=== PATIENT | female | born 1955 | race Caucasian/White ===

== ENCOUNTER → 2016-09-30 | Outpatient (CLI) | payer OTHER ==
--- NOTE | 2016-10-02 08:46 | MM ---
Reason for exam: screening (asymptomatic). Last mammogram was performed 1 year ago. History: Patient is postmenopausal and has history of other cancer at age 53. Took hormonal contraceptives for 5 years beginning at age 19. Physical Findings: A clinical breast exam by your physician is recommended on an annual basis and results should be correlated with mammographic findings. MG 3D Screening Mammo W/Cad Bilateral CC and MLO view(s) were taken. Prior study comparison: September 25, 2015, bilateral MG screening mammo w CAD. September 14, 2014, bilateral MG screening mammo w CAD. September 13, 2013, bilateral digital screening mammo w/CAD. The breast tissue is heterogeneously dense. This may lower the sensitivity of mammography. No significant changes when compared with prior studies. ASSESSMENT: Negative, BI-RAD 1 RECOMMENDATION: Routine screening mammogram of both breasts in 1 year.
== END | disposition home or self-care (01) ==
LOC: RADMAMWWP 16:45
PROVIDERS: ATTEND Obstetrics & Gynecology
DX: Z12.31 Encounter for screening mammogram for malignant neoplasm of breast (principal)
CPT/HCPCS: 77063; G0202

== ENCOUNTER → 2016-10-31 | Outpatient (CLI) | payer OTHER ==
[2016-10-31 11:01] LABS: Basophils # (A) 0.1 k/uL (0-0.2); Basophils % (A) 2 %; CH 30.4; Eosinophils # (A) 0.2 k/uL (0-0.7); Eosinophils % (A) 4 %; HCT 40.5 % (34.0-46.0); HDW 2.39; HGB 13.5 gm/dL (11.4-16.0); Luc # (Auto) 0.21; Luc % (Auto) 4; Lymphocytes # (A) 2.1 k/uL (1.0-4.8); Lymphocytes % (A) 39 %; MCH 29.9 pg (25.0-35.0); MCHC 33.3 g/dL (31.0-37.0); MCV 89.9 fL (80.0-100.0); Mean Platelet Volume 8.5; Monocytes # (A) 0.3 k/uL (0-1.0); Monocytes % (A) 5 %; Neutrophils # (A) 2.4 k/uL (1.3-7.7); Neutrophils % (A) 46 %; RDW 12.1 % (11.5-15.5); WBC 5.4 k/uL (3.8-10.6); WBC (Perox) 5.17
[2016-10-31 11:18] LABS: ALT 36 U/L (9-52); AST 30 U/L (14-36); Alkaline Phosphatase 60 U/L (38-126); Anion Gap 10 mmol/L; Blood Urea Nitrogen 20 mg/dL (7-17); Calcium 9.8 mg/dL (8.4-10.2); Carbon Dioxide 28 mmol/L (22-30); Chloride 103 mmol/L (98-107); Cholesterol 181 mg/dL (<200); Glucose 92 mg/dL (74-99); HDL Cholesterol 59 mg/dL (40-60); Non-African American GFR(MDRD) >60 (>60 ml/min/1.73 sqM); Potassium 4.7 mmol/L (3.5-5.1); Sodium 141 mmol/L (137-145); Total Bilirubin 0.9 mg/dL (0.2-1.3); Total Protein 7.2 g/dL (6.3-8.2); Triglycerides 78 mg/dL (<150); Uric Acid 5.8 mg/dL (3.7-7.4)
== END ==
LOC: LABWHC1 09:26
PROVIDERS: ATTEND Internal Medicine
DX: E78.5 Hyperlipidemia, unspecified (principal); M10.9 Gout, unspecified
CPT/HCPCS: 36415; 80053; 80061; 84439; 84443; 84550; 85025

== ENCOUNTER → 2016-11-07 | Outpatient (CLI) | payer OTHER ==
[2016-11-07 14:09] LABS: Appearance,Urine Clear (Clear); Bacteria,Urine Moderate /hpf; Bilirubin,Urine Negative (Negative); Glucose,Urine (UA) Negative (Negative); Ketones,Urine Negative (Negative); Leukocyte Esterase,Urine Large (Negative); Mucus,Urine Rare /hpf; Nitrite,Urine Negative (Negative); PH, Urine 6.5 (5.0-8.0); Particle Count 922; Protein,Urine Negative (Negative); RBC,Urine 4 /hpf (0-5); Specific Gravity,Urine 1.006 (1.001-1.035); UA Billing (MACRO vs. MICRO) MICRO; Urobilinogen,Urine <2.0 mg/dL (<2.0); WBC,Urine 121 /hpf (0-5)
== END | disposition home or self-care (01) ==
LOC: LABWHC1 13:42
PROVIDERS: ATTEND Internal Medicine
DX: N39.0 Urinary tract infection, site not specified (principal)
CPT/HCPCS: 81001; 87077; 87086; 87186

== ENCOUNTER → 2017-01-08 | Outpatient (CLI) | payer OTHER ==
--- NOTE | 2017-01-09 07:47 | BD ---
EXAMINATION TYPE: MG DEXA axial skeleton. DATE OF EXAM: 01/08/2017 COMPARISON: DEXA bone scan October 10, 2014. CLINICAL HISTORY: Osteopenia per order. Height: 62 Weight: 155.1 FRAX RISK QUESTIONS: Alcohol (3 or more units per day): no Family History (Parent hip fracture): no Glucocorticoids (More than 3mos): no (Ex: prednisone, prednisolone, methylprednisolone, dexamethasone, and hydrocortisone). History of Fracture in Adulthood: no Secondary Osteoporosis: 1. Type 1 Diabetes: no 2. Hyperthyroidism: no 3. Menopause before 45: no 4. Malnutrition: no 5. Chronic liver disease: no Rheumatoid Arthritis: no Current Tobacco Use: no RISK FACTORS HISTORY OF: Hip Fracture (Right/Left): no Spine Fracture: no History of Wrist Fracture: no Surgery to Spine/Hip(right/left)/Wrist (right/left): no Family History of Osteoporosis: yes- mother Active: yes Diet low in dairy products/other sources of calcium: no Postmenopausal woman: hysterectomy age 46 Lost more than 2 inches in height since high school: no Frequent falls: no Adrenal Insufficiency: no MEDICATIONS: none Additional History: EXAM MEASUREMENTS: Bone mineral densitometry was performed using the [employer] System. Bone mineral density as measured about the Lumbar spine is: ----- L1-L4(G/cm2): 1.170 T Score Values are as follows: ----- L2: -0.4 ----- L3: -0.3 ----- L4: 0.8 ----- L1-L4: -0.1 Bone mineral density has: decreased-0.5 % since study of: 10.20.2014 Bone mineral density about the R hip (g/cm2): 0.929 Bone mineral density about the L hip (g/cm2): 0.919 T Score values are as follows: -----R Neck: -0.8 -----L Neck: -0.9 -----R Total: -0.4 -----L Total: -0.6 Bone mineral density has: increased 1.0 % since study of: 10.20.2014 IMPRESSION: Normal (Values between +1 and -1 indicate normal bone mass). Consider repeating this study in 5 year s or sooner if there is some new clinical indication. NOTE: T-SCORE=SD OF THE YOUNG ADULT MEAN.
== END | disposition home or self-care (01) ==
LOC: RADBDWWP 15:49
PROVIDERS: ATTEND Obstetrics & Gynecology
DX: Z13.820 Encounter for screening for osteoporosis (principal)
CPT/HCPCS: 77080

== ENCOUNTER → 2017-10-21 | Outpatient (CLI) | payer OTHER ==
--- NOTE | 2017-10-22 10:19 | MM ---
Reason for exam: screening (asymptomatic). Last mammogram was performed 1 year and 1 month ago. History: Patient is postmenopausal and has history of other cancer at age 53. Took hormonal contraceptives for 5 years beginning at age 19. Physical Findings: A clinical breast exam by your physician is recommended on an annual basis and results should be correlated with mammographic findings. MG 3D Screening Mammo W/Cad Bilateral CC and MLO view(s) were taken. Prior study comparison: September 30, 2016, bilateral MG 3d screening mammo w/cad. September 25, 2015, bilateral MG screening mammo w CAD. The breast tissue is heterogeneously dense. This may lower the sensitivity of mammography. Finding: There are typically benign round calcifications in both breasts. There is no discrete abnormality. ASSESSMENT: Benign, BI-RAD 2 RECOMMENDATION: Routine screening mammogram of both breasts in 1 year.
== END | disposition home or self-care (01) ==
LOC: RADMAMWWP 09:31
PROVIDERS: ATTEND Obstetrics & Gynecology
DX: Z12.31 Encounter for screening mammogram for malignant neoplasm of breast (principal)
CPT/HCPCS: 77063; 77067

== ENCOUNTER → 2018-12-04 | Outpatient (CLI) | payer OTHER ==
--- NOTE | 2018-12-07 08:17 | MM ---
Reason for exam: screening (asymptomatic). Last mammogram was performed 1 year and 1 month ago. History: Patient is postmenopausal and has history of other cancer at age 53. Took hormonal contraceptives for 5 years beginning at age 19. Physical Findings: A clinical breast exam by your physician is recommended on an annual basis and results should be correlated with mammographic findings. MG 3D Screening Mammo W/Cad Bilateral CC and MLO view(s) were taken. Prior study comparison: October 21, 2017, bilateral MG 3d screening mammo w/cad. September 30, 2016, bilateral MG 3d screening mammo w/cad. The breast tissue is heterogeneously dense. This may lower the sensitivity of mammography. Finding: There is a 7 mm circumscribed oval mass located 2-3 cm from the nipple in the anterior position of the left breast on CC 29/ and MLO 32/69. New finding since October 21, 2017. ASSESSMENT: Incomplete: need additional imaging evaluation, BI-RAD 0 RECOMMENDATION: Ultrasound of the left breast. [facility] will attempt to contact patient to return for ultrasound.
== END | disposition home or self-care (01) ==
LOC: RADMAMWWP 10:00
PROVIDERS: ATTEND Obstetrics & Gynecology
DX: Z12.31 Encounter for screening mammogram for malignant neoplasm of breast (principal)
CPT/HCPCS: 77063; 77067

== ENCOUNTER → 2018-12-15 | Outpatient (CLI) | payer OTHER ==
--- NOTE | 2018-12-15 13:54 | USB ---
Reason for exam: additional evaluation requested from abnormal screening. History: Patient is postmenopausal and has history of other cancer at age 53. Took hormonal contraceptives for 5 years beginning at age 19. Physical Findings: Nurse did not find any significant physical abnormalities on exam. US Breast Workup Limited LT Left complete breast ultrasound includes all four quadrants, the retroareolar region and axilla. Finding demonstrates 0.9 x 0.7 x 0.5cm oval cystic lesion at the axilla, multiple morphologically normal appearing lymph nodes. Mammographic findings appears only very minimally enlarged from 2017 and 2018 and questionably present on exams back to 2014. These results were verbally communicated with the patient and result sheet given to the patient on 12/15/18. ASSESSMENT: Probably benign, BI-RAD 3 RECOMMENDATION: Follow-up diagnostic mammogram of the left breast in 6 months.
== END | disposition home or self-care (01) ==
LOC: RADUSWWP 12:58
PROVIDERS: ATTEND Obstetrics & Gynecology
DX: R92.8 Other abnormal and inconclusive findings on diagnostic imaging of breast (principal)

== ENCOUNTER → 2019-07-06 | Outpatient (CLI) | payer OTHER ==
--- NOTE | 2019-07-06 09:28 | MM ---
Reason for exam: additional evaluation requested from prior study. Last mammogram was performed 7 months ago. History: Patient is postmenopausal and has history of other cancer at age 53. Took hormonal contraceptives for 5 years beginning at age 19. Physical Findings: Nurse did not find any significant physical abnormalities on exam. MG 3D Diag Mammo W/Cad LT CC and MLO view(s) were taken of the left breast. Prior study comparison: December 04, 2018, bilateral MG 3d screening mammo w/cad. October 21, 2017, bilateral MG 3d screening mammo w/cad. The breast tissue is heterogeneously dense. This may lower the sensitivity of mammography. There is chronic nodularity in the left breast. Asymmetric breast tissue, stable. There is no discrete abnormality. These results were verbally communicated with the patient and result sheet given to the patient on 07/06/19. ASSESSMENT: Benign, BI-RAD 2 RECOMMENDATION: Return to routine screening mammogram schedule for both breasts. Back on schedule.
== END | disposition home or self-care (01) ==
LOC: RADMAMWWP 08:27
PROVIDERS: ATTEND Obstetrics & Gynecology
DX: R92.8 Other abnormal and inconclusive findings on diagnostic imaging of breast (principal)
CPT/HCPCS: 77061; 77065

== ENCOUNTER → 2019-09-28 | Outpatient (CLI) | payer MEDICARE ==
[2019-09-28 10:36] LABS: Basophils # (A) 0.1 k/uL (0-0.2); Basophils % (A) 1 %; Eosinophils # (A) 0.2 k/uL (0-0.7); Eosinophils % (A) 4 %; HCT 41.9 % (34.0-46.0); HGB 13.6 gm/dL (11.4-16.0); Lymphocytes # (A) 2.4 k/uL (1.0-4.8); Lymphocytes % (A) 36 %; MCH 29.6 pg (25.0-35.0); MCHC 32.5 g/dL (31.0-37.0); MCV 90.9 fL (80.0-100.0); Mean Platelet Volume 8.7; Monocytes # (A) 0.4 k/uL (0-1.0); Monocytes % (A) 5 %; Neutrophils # (A) 3.4 k/uL (1.3-7.7); Neutrophils % (A) 52 %; Platelet Count 278 k/uL (150-450); RBC 4.61 m/uL (3.80-5.40); RDW 11.8 % (11.5-15.5); WBC 6.6 k/uL (3.8-10.6)
[2019-09-28 17:21] LABS: African American GFR (CKD) 77.8 (60.0-200.0); Albumin 4.5 g/dL (3.80-4.90); Albumin/Globulin Ratio 2.14 (1.60-3.17); Anion Gap 10.1 mmol/L (4.00-12.00); BUN/Creat Ratio 24.44 Ratio (12.00-20.00); Calcium 9.9 mg/dL (8.7-10.3); Carbon Dioxide 29.9 mmol/L (21.6-31.8); Chol/HDL Ratio 2.5; Globulin 2.1 g/dL (1.6-3.3); LDL Cholesterol,Calculated 96.6 mg/dL (0.0-131.0); Non-African American GFR(CKD) 67.1 (60.0-200.0); Potassium 4.6 mmol/L (3.5-5.5); Total Bilirubin 0.7 mg/dL (0.2-1.2); Total Protein 6.6 g/dL (6.2-8.2); VLDL Calculation 17.4 mg/dL (5.00-40.00)
[2019-09-28 17:28] LABS: T4, Free (Free Thyroxine) 1.4 ng/dL (0.80-1.80)
== END | disposition home or self-care (01) ==
LOC: LABWHC1 08:07
PROVIDERS: ATTEND Internal Medicine
DX: E78.5 Hyperlipidemia, unspecified (principal)
CPT/HCPCS: 36415; 80053; 80061; 84439; 84443; 85025

== ENCOUNTER → 2020-02-18 | Outpatient (CLI) | payer MEDICARE ==
--- NOTE | 2020-02-21 11:57 | MM ---
Reason for exam: screening (asymptomatic). Last mammogram was performed 7 months ago. History: Patient is postmenopausal and has history of other cancer at age 53. Took hormonal contraceptives for 5 years beginning at age 19. Physical Findings: A clinical breast exam by your physician is recommended on an annual basis and results should be correlated with mammographic findings. MG 3D Screening Mammo W/Cad Bilateral CC and MLO view(s) were taken. Prior study comparison: July 06, 2019, left breast MG 3d diag mammo w/cad LT. December 04, 2018, bilateral MG 3d screening mammo w/cad. The breast tissue is heterogeneously dense. This may lower the sensitivity of mammography. There is chronic nodularity in the right breast laterally. No significant changes when compared with prior studies. ASSESSMENT: Benign, BI-RAD 2 RECOMMENDATION: Routine screening mammogram of both breasts in 1 year.
== END | disposition home or self-care (01) ==
LOC: RADMAMWWP 14:54
PROVIDERS: ATTEND Obstetrics & Gynecology
DX: Z12.31 Encounter for screening mammogram for malignant neoplasm of breast (principal)
CPT/HCPCS: 77063; 77067

== ENCOUNTER → 2020-05-31 | Outpatient (CLI) | payer MEDICARE ==
[2020-05-31 11:31] LABS: HGB 13.5 gm/dL (11.4-16.0); MCH 30.8 pg (25.0-35.0); MCHC 32.8 g/dL (31.0-37.0); MCV 93.8 fL (80.0-100.0); Mean Platelet Volume 7.8; Platelet Count 260 k/uL (150-450); RBC 4.37 m/uL (3.80-5.40); RDW 12.1 % (11.5-15.5); WBC 6.3 k/uL (3.8-10.6)
[2020-05-31 11:38] LABS: Partial Thromboplastin Time 23.8 sec (22.0-30.0); Prothrombin Time 10.1 sec (9.0-12.0)
[2020-05-31 11:39] LABS: Amorphous Sediment,Urine Rare /hpf; Appearance,Urine Clear (Clear); Bacteria,Urine Few /hpf; Bilirubin,Urine Negative (Negative); Blood,Urine Negative (Negative); Color,Urine Yellow; Glucose,Urine (UA) Negative (Negative); Ketones,Urine Negative (Negative); Leukocyte Esterase,Urine Small (Negative); Mucus,Urine Rare /hpf; Nitrite,Urine Positive (Negative); Protein,Urine Negative (Negative); RBC,Urine 1 /hpf (0-5); Specific Gravity,Urine 1.016 (1.001-1.035); Squamous Epithelial Cell,Urine <1 /hpf (0-4); Urobilinogen,Urine <2.0 mg/dL (<2.0); WBC,Urine 3 /hpf (0-5)
[2020-05-31 16:28] LABS: African American GFR (CKD) 89.7 (60.0-200.0); Albumin 4.5 g/dL (3.80-4.90); Albumin/Globulin Ratio 2.14 (1.60-3.17); Anion Gap 10.8 mmol/L (4.00-12.00); BUN/Creat Ratio 26.25 Ratio (12.00-20.00); Carbon Dioxide 25.2 mmol/L (21.6-31.8); Globulin 2.1 g/dL (1.6-3.3); Non-African American GFR(CKD) 77.4 (60.0-200.0); Potassium 5.1 mmol/L (3.5-5.5); Total Bilirubin 0.6 mg/dL (0.3-1.2); Total Protein 6.6 g/dL (6.2-8.2)
== END | disposition home or self-care (01) ==
LOC: LABWHC1 10:00
PROVIDERS: ATTEND Orthopaedic Surgery Sports Medicine
DX: Z01.818 Encounter for other preprocedural examination (principal); Z01.812 Encounter for preprocedural laboratory examination
CPT/HCPCS: 36415; 80053; 81001; 85027; 85610; 85730; 87070

== ENCOUNTER 2020-06-15 07:53 | Day surgery (SDC) | payer MEDICARE ==
[2020-06-13 12:37] VITALS: BMI 27.4
[~2020-06-15 07:53] MED LIST: ACETAMINOPHEN TAB 500 MG TAB PO ONE; DEXAMETHASONE SOD PHOSPHATE 4 MG/ML 1 ML VIAL IV ONE; GABAPENTIN 300 MG CAP PO ONE; HYDROmorphone 0.5 MG/0.5 ML SYRINGE IVP PRN; LACTATED RINGERS 1,000 ML IV SCH; MELOXICAM 7.5 MG TAB PO ONE; MIDAZOLAM 2 MG/2 ML VIAL IV PRN; ONDANSETRON 4 MG/2 ML VIAL IVP ONE; TRANEXAMIC ACID 1,000 MG in SODIUM CHLORIDE 0.9% 100 ML IVPB ONE
[2020-06-15] MEDS ORDERED: LIDOCAINE 1% (10MG/ML) FOR IV START INTRADERMA ONE (08:30)
[2020-06-15] MEDS ORDERED: fentaNYL (PF) 50 MCG/ML 2 ML AMP IV ONE (08:56)
[2020-06-15] MEDS ORDERED: TRANEXAMIC ACID 1,000 MG/10 ML VIAL ONE (09:22)
[2020-06-15] MEDS ORDERED: PHENYLEPHRINE-0.9% NACL SYG 1 MG/10 ML SYRINGE ONE (09:22)
[2020-06-15] MEDS ORDERED: SODIUM CHLORIDE 0.9% 100 ML BAG ONE (09:22)
[2020-06-15] MEDS ORDERED: ePHEDrine SULFATE/0.9% NACL/PF 50 MG/5 ML SYRINGE IV ONE (09:22)
[2020-06-15] MEDS ORDERED: PROPOFOL 10 MG/ML 20 ML VIAL IV ONE (09:22)
[2020-06-15] MEDS ORDERED: fentaNYL (PF) 50 MCG/ML 2 ML AMP ONE (09:22)
[2020-06-15] MEDS ORDERED: LIDOCAINE 1% INJ 10MG/ML (20 ML MDV) ONE (09:22)
[2020-06-15] MEDS ORDERED: MIDAZOLAM 2 MG/2 ML VIAL ONE (09:22)
[2020-06-15] MEDS ORDERED: HYDROcodone/APAP 10-325MG 1 EACH TAB PO PRN (09:23)
[2020-06-15] MEDS ORDERED: NA PHOS,M-B/NA PHOS,DI-BA 133 ML ENEMA RECTAL PRN (09:23)
[2020-06-15] MEDS ORDERED: HYDROmorphone 0.5 MG/0.5 ML SYRINGE IVP PRN ×3 (09:23)
[2020-06-15] MEDS ORDERED: ONDANSETRON 4 MG/2 ML VIAL IVP PRN (09:23)
[2020-06-15] MEDS ORDERED: NALOXONE 0.4 MG/ML 1 ML VIAL IV PRN (09:23)
[2020-06-15] MEDS ORDERED: MAGNESIUM HYDROXIDE 2,400 MG/10 ML CUP PO PRN (09:23)
[2020-06-15] MEDS ORDERED: diazePAM 5 MG TAB PO PRN (09:23)
[2020-06-15] MEDS ORDERED: HYDROcodone/APAP 5-325MG 1 EACH TAB PO PRN (09:23)
[2020-06-15] MEDS ORDERED: hydrOXYzine pamoate 25 MG CAP PO PRN (09:23)
[2020-06-15] MEDS ORDERED: TEMAZEPAM 15 MG CAP PO PRN (09:23)
[2020-06-15] MEDS ORDERED: traMADol 50 MG TAB PO PRN (09:23)
[2020-06-15] MEDS ORDERED: bisacodyL 10 MG SUPP RECTAL PRN (09:23)
[2020-06-15] MEDS ORDERED: ceFAZolin 3,000 MG in SODIUM CHLORIDE 0.9% IRRIGATIO 3,000 ML IRRIGATION ONE (09:26)
[2020-06-15] MEDS: ROPIVACAINE 246.25 MG, EPINEPHrine 0.5 MG, KETOROLAC 30 MG, cloNIDine HCL/PF 80 MCG, WA... MISCELLANE ONE ×10 (09:54→10:30)
[2020-06-15] MEDS ORDERED: ROPIVACAINE 0.2%-NS ON-Q PUMP 1,090 MG, EMPTY PAIN BALL 1 EACH MISCELLANE PRN (09:55)
--- NOTE | 2020-06-15 09:55 | P.ANPRN ---
Procedure Note - Anesthesia - Nerve Block Performed Left Adductor Canal Infusion Time Out Performed: Yes Date of Procedure: 06/15/20 Procedure Start Time: 08:55 Procedure Stop Time: 09:05 Location of Patient: PreOp Indication: Requested by Surgeon Specifically requested for management of pain by DrAndreia: Noble Braswell Sedation Type: Sedate with meaningful contact maintained Preparation: Sterile Prep, Sterile Dressing Position: Supine Catheter: Indwelling Needle Types: Pajunk Needle Gauge: 20 Ultrasound used to visualize needle placement: Yes Ultrasound used to observe medication spread: Yes Injectate: 0.5% Ropivacaine (see comment for volume) (20 ml) Blood Aspirated: No Pain Paresthesia on Injection Noted: No Resistance on Injection: Normal Image Stored and Saved: Yes Events: Uneventful and Well Tolerated
--- NOTE | 2020-06-15 12:07 | XR ---
Left knee Limited HISTORY: Postop frontal and lateral views of the left knee submitted Patient is status post left knee arthroplasty. There is anatomic alignment. Lucency present in the so ft tissues. Screw tract noted to the proximal tibial metaphysis medially. IMPRESSION: Orthopedic follow-up.
[2020-06-15] MEDS: LACTATED RINGERS 1,000 ML IV SCH ×2 (12:42→16:41)
--- NOTE | 2020-06-15 18:31 | OP ---
OPERATIVE REPORT DATE OF PROCEDURE: 06/15/2020. SURGEON: Dr. Noble Braswell. PROCESSING ENGINEER: Arik BAUER. PREOPERATIVE DIAGNOSIS: Left knee osteoarthrosis. POSTOP DIAGNOSIS: Left knee osteoarthrosis. OPERATION PERFORMED: Left total knee arthroplasty. ANESTHESIA: Spinal with sedation. ESTIMATED BLOOD LOSS: 100 mL. TOURNIQUET TIME: 46 minutes at 250 mmHg. COMPLICATIONS: None apparent. DRAINS: None. DISPOSITION: Postanesthesia care unit. INDICATIONS: Delaney is a very pleasant 64-year-old female with longstanding history of left knee pain. History and physical examination are consistent with advanced left knee osteoarthrosis. She has been through significant nonoperative management up to this point. Further treatments were discussed. She decided to go for the left total knee arthroplasty. Risks of procedure were discussed with her in detail. These risks include, but are not limited to risk of infection, nerve damage, bleeding, pain, and a small risk of deep vein thrombosis which could lead to fatal pulmonary embolism. There is also risk of loosening of the implants, which could require revision operation. The patient understands these risks. All of her questions were answered to her satisfaction. Appropriate informed consent was obtained. DESCRIPTION OF PROCEDURE: Patient identified in preop holding area. Surgical site was marked by both the patient and myself. She was given 2 g of Ancef IV for prophylactic purposes. She was then transferred to the operative suite. She was placed supine on the operative table. Spinal anesthetic was then administered and dosed per the anesthesia without apparent complication. Examination under anesthesia was then performed. The patient was 2-3 degrees shy of full extension. She had 100 degrees of flexion. The medial collateral ligament, lateral collateral ligament and posterior cruciate ligaments were stable. Tourniquet was then placed high on the left upper thigh well-padded in preparation for surgery. The patient's left lower extremity than prepped and draped in the usual sterile fashion. Standard surgical pause undertaken to ensure that we were operating on the correct site and that appropriate preoperative antibiotics were given. All staff were in agreement. We proceeded. The outlines of the patella were marked with a surgical pen. A planned 12 cm vertical incision over the patella was marked surgical pen. Leg was then exsanguinated with Esmarch dressing. The knee was then flexed and the tourniquet was inflated to 250 mmHg. Total tourniquet time for the procedure was 46 minutes Incision was then made with a 10 blade scalpel. The dissection was carried down sharply overlying fascia. Great care was taken to minimize the skin flaps. The knee was then exposed using a standard medial parapatellar approach. A small cuff of quadriceps tendon was then left for suturing. She was in quite a bit of varus preoperatively. A standard medial release was then made. Superficial medial collateral ligament dissected off the bone around the posterior aspect of the proximal tibia. The medial meniscus was then excised as well. The lateral meniscus was also released anteriorly. The leg was then externally rotated. The patella was everted. The knee was flexed. The retractors then placed to protect the collateral ligaments. I then proceeded to remove the infrapatellar fat pad. This was excised sharply tangentially with fibers of the patellar tendon. I then proceeded to remove peripheral osteophytes. This is done with a rongeur. I then proceeded with the distal femoral resection. She did have near full extension. A planned 9 mm resection was then done. The femoral canal was then entered in the midline of the femur approximately 10 mm anterior to the origin of posterior cruciate ligament. The justice was then advanced down the center of the femur and placed intramedullary. Based on the preop radiographs, anatomic and mechanical axis of the femur was approximately 4-5 degrees. The valgus angle of the femoral cutting guide was then set at 4 degrees for the left knee. The distal femoral cutting guide was then advanced over the intramedullary justice. This was seated firmly against the femur fit. I then as mentioned planned to take 9 mm off the distal femur. The cutting blocks then secured onto the femur with pins. The guide jig was then removed. The distal femoral cut was made through the slot of the block. The pins then removed this femoral cutting block was removed. The accuracy of this femoral cuts was checked with 2 flat bars. I then proceeded with femoral sizing. Posterior referencing sizing guide was held firmly against the resected surface of the femur. The posterior condyles were resting on the posterior plane of the guide. The sizing stylus then placed onto the anterior femur. The size was measured as a size 5. I then assessed for femoral rotation. The plan was for 3 degrees external rotation. 3 degrees external rotation was placed onto the jig. These holes were then marked. I then confirmed the rotation by 3 separate methods. This was done using epicondylar axis as well as Whitesides line and posterior referencing. Deemed that the external rotation was proper. I then went forward, placed the femoral cutting block. This was placed over the previously placed pin holes with the Fred wing was then placed on the anterior slots to ensure that we would not notch the anterior femur. The anterior femoral cut. I then proceed with the anterior femoral cut. This was flush with the anterior cortex of the femur. The posterior cuts were then made followed by the anterior chamfer cut, then the posterior chamfer cut. The cutting block was then removed. Throughout the resection, the collateral ligaments were protected with retractors. I then placed a trial size 5 femur. It fit very nice medial-lateral and fit flush with the distal end of the femur. The drill holes were then made. I then proceeded with the tibial cut. I planned for cruciate-retaining knee. Guide was placed and set for varus valgus and for slope. Height set proper for approximately 2 mm resection from the medial tibial plateau which was the lower side. the alignment and the amount of resection. The cutting block was then pinned to the proximal tibia. The alignment justice was removed. The proximal tibia was resected with the reciprocating saw. Again this was done with retractors protecting the collateral ligaments as well as the posterior cruciate ligament. I then proceeded to evaluate the flexion extension gaps. A 10 mm block was then placed. The flexion-extension gaps were equal. I then proceeded with resection of posterior osteophytes. She had very minimal posterior osteophytes. This is done using a curved osteotome. This resected the posterior osteophytes. Posterior capsule stripping was done off the posterior aspect of the femur. The osteophytes were then removed. I then proceed to resection of patella. The thickness of the patella was measured using the caliper. The thickness was 22 mm. The thickness of the anticipated patellar dome was taken into account. Retraction was then performed and confirmed to be equal in 4 quadrants using a caliper. Approximately 14 mm of bone remained after resection. A 29 x 8 standard patellar trial was then placed. The holes were drilled. Trial was then placed. I then proceeded with sizing tibial plate. A size C tibial plate fit very nicely. I then proceeded with the trial femur, the tibial tray and patellar button. A 10 mm trial tibial insert was also placed. The components fit very nicely. She had full extension and flexion. The extension and flexion gaps were equal and stable to varus and valgus stress. The patella tracked appropriately. The tibial tray rotation was marked with a Bovie. This was externally rotated properly. I then proceed with tibial preparation. First drilled the femoral holes, removed femoral component. The tibial tray was then set for proper external rotation as well as mediolateral placement on the tibia. It was then pinned into place. I then proceeded with punching the keel. I then decided to proceed with cementing of all of our components. The knee was thoroughly irrigated with sterile saline solution via pulse lavage. The lateral geniculate artery was identified and cauterized. All blood was removed from the bone of the tibia femur and patella with pulse lavage. I then proceed with cementing. Two packs of antibiotic bone cement prepared on the back table by the rn neurosurgical. I then proceed with cemented tibia first. The cement was impacted in the keel as well as deeply seated into the bone. A second coat cement was then placed. The tibia was then impacted into place. Excess cement was removed with [place]'s and jokers. I then proceed with cementing of the femoral component. The femoral component was also cemented using sterile technique. Excess cement was removed with. A 10 mm trial insert was then placed and the knee was brought into full extension with a constant axial load placed until the cement had hardened. The patellar component was then cemented. This held firmly with a compressive device until the cement had dried. When cement had dried, the knee was taken out of extension. All excess cement was removed from around the prosthesis. We then trialed with a 10 mm insert. I then proceeded to trial with a 12 mm insert. The flexion-extension gaps felt much better. The knee was stable. It came into full extension. I decided to go forward with a 10 mm cross-linked cruciate-retaining tibial insert. Polyethylene was then placed onto the tibial tray and locked into place. The knee was then reduced. The knee was again further irrigated with sterile saline solution with antibiotic added. The tourniquet was then deflated. The total tourniquet time procedure was 46 minutes at 250 mmHg. Final components were Lynn Persona size 5 cruciate-retaining femoral component, size C tibial tray, a 12 mm medial congruent cruciate-retaining tibial polyethylene insert and a 29 x 8 mm patella. I then proceeded with closure. Again, the knee was thoroughly irrigated. The quadriceps tendon and medial retinaculum were reapproximated with #2 Ethibond suture. The extensor mechanism was then closed with a running Quill suture. Subcutaneous tissues were closed with 2-0 Vicryl interrupted suture. The skin was closed with a running 3-0 Quill suture. Dermabond applied to the incision. Sterile compressive dressings were applied. All sponge and needle counts were deemed correct prior to closure. The patient tolerated procedure without apparent complication. She was transferred to the recovery room in stable condition. MMODL / IJN: [id number] /
[2020-06-15] MEDS ORDERED: SENNOSIDES-DOCUSATE SODIUM 1 EACH TAB PO SCH (21:00)
[2020-06-15] MEDS: ASPIRIN 81 MG PO SCH (21:34)
[2020-06-16] MEDS: ACETAMINOPHEN TAB 325 MG TAB PO PRN ×2 (06:57→13:36)
--- NOTE | 2020-06-16 07:26 | P.PN ---
Progress Note - Text Progress Note Date: 06/16/20 Postoperative day # 1 status post total knee arthroplasty, under spinal anesthesia, and adductor canal catheter placed for postoperative analgesia, currently at ropivacaine 0.2% 8 mL per hour and continuous infusion, she is complaining of pain in the posterior aspect of the knee, patient using oral pain medication for breakthrough pain. Assessment and plan= Acute postoperative pain, adductor canal catheter for pain control, we'll continue the same management.
[2020-06-16 08:11] LABS: Basophils % (A) 0 %; Eosinophils % (A) 0 %; HCT 33.7 % (34.0-46.0); HGB 11.2 gm/dL (11.4-16.0); Lymphocytes # (A) 1.8 k/uL (1.0-4.8); Lymphocytes % (A) 17 %; MCH 30.7 pg (25.0-35.0); MCHC 33.1 g/dL (31.0-37.0); MCV 92.6 fL (80.0-100.0); Mean Platelet Volume 7.9; Monocytes # (A) 0.6 k/uL (0-1.0); Monocytes % (A) 5 %; Neutrophils # (A) 7.8 k/uL (1.3-7.7); Neutrophils % (A) 76 %; Platelet Count 180 k/uL (150-450); RBC 3.64 m/uL (3.80-5.40); RDW 12.1 % (11.5-15.5); WBC 10.3 k/uL (3.8-10.6)
[2020-06-16] MEDS: ASPIRIN 81 MG PO SCH (08:59)
[2020-06-16] MEDS ORDERED: MULTIVITAMINS, THERA 1 EACH TAB PO SCH (12:00)
[2020-06-16 12:21] VITALS: BP 114/71; PULSE 74; RESP 15; TEMP 97.8
--- NOTE | 2020-06-16 15:07 | CONS ---
CONSULTATION PULMONARY/CRITICAL CARE CONSULTATION: DATE OF SERVICE: June 16, 2020 HISTORY OF PRESENT ILLNESS: This is a 64-year-old female who sees Dr. Rondon for a primary. The patient had severe left knee osteoarthrosis. The patient underwent a left total knee arthroplasty by Dr. Braswell yesterday. Today is postop day #1. The patient is doing well. She may be discharged home today. She is not sure. She is feeling well. She has no complaints other than pain and swelling at the surgical site. The patient apparently has no major medical problems. She has no allergies. She takes no medications other than Heliocare 240 mg daily and loratadine. She also uses magnesium, zinc, and vanquish. Vaccinations are up to date. FAMILY HISTORY: Positive for a father with cancer of the stomach. A mother with thyroid disease and a sister with hypertension. PAST MEDICAL PROBLEMS: Include primarily migraine cephalgia, allergic rhinitis, and gastroesophageal reflux disease. SURGICAL HISTORY: Includes a hysterectomy and a bladder suspension. SOCIAL HISTORY: Negative for tobacco or alcohol or illicit drugs. REVIEW OF SYMPTOMS: CONSTITUTIONAL: Negative. NEUROLOGIC negative. HEENT negative. CARDIOVASCULAR negative. PULMONARY negative. GI negative. negative. IMMUNOLOGIC negative. ENDOCRINOLOGIC negative. DERMATOLOGIC negative. MUSCULOSKELETAL: Left knee pain. PHYSICAL EXAMINATION: VITAL SIGNS: Current vital signs include temperature 97.8, heart rate 74, respiratory rate 15, blood pressure 114/71 mean 85. Room air saturation 99%. GENERAL: Appears in no acute distress. HEENT: Examination is grossly unremarkable. NECK: Supple. CARDIOVASCULAR examination reveals regular rhythm and rate. S1, S2 normal. There is no S3, S4, or murmur. LUNGS: Reveal clear breath sounds equal. No wheezes, rhonchi, or crackles. ABDOMEN: Soft. Bowel sounds are heard. No masses or tenderness. EXTREMITIES are intact. No cyanosis, clubbing, or edema. SKIN: Without rash. NEUROLOGIC: Examination is brief but nonfocal. LAB DATA: Reviewed. White count 10.3, hemoglobin 11.2, hematocrit 33.7, platelet count normal. No additional labs reviewed. X-RAY: Of the left knee yesterday shows status post left total knee arthroplasty. There is anatomic alignment. Medications are reviewed. ASSESSMENT: 1. Postoperative day #1 status post left total knee arthroplasty for severe osteoarthritis, left knee. 2. No major medical problems other than gastroesophageal reflux disease, migraine cephalgia, and allergic rhinitis. PLAN: The patient possibly could be discharged home today. She will follow up with Dr. Braswell in Orthopedics and also her primary physician, Dr. Rondon. WINDY / KHALIFN: [id number] /
--- NOTE | 2020-06-16 19:02 | P.DS ---
Providers Expected date of discharge: 06/16/20 Attending physician: Noble Braswell Consults: 06/15/20 09:23 Consult Physician Routine Consulting Provider: Thaddeus Rondon Consult Reason/Comments: post op medical management Do you want consulting provider notified?: Yes Primary care physician: Thaddeus Rondon - Discharge Diagnosis(es) (1) Status post total left knee replacement Patient was admitted to the OR on 06/15/2020 to undergo a left total knee arthroplasty. She had failed conservative measures as an outpatient and desired to proceed with elective surgery after given informed consent. She underwent the above procedure which she tolerated well without complication. Postoperative hospital course has remained without complication. On day of discharge she is afebrile, vital signs stable, labs within acceptable ranges, tolerating by mouth meds and diet, voiding without difficulty, positive flatus, denies abdominal pain or calf pain, pain is controlled on oral pain medication and has no new complaints. Wound is benign, neurovascular status is intact, calf is soft and nontender, abdomen soft and nontender. Review of systems is negative for numbness, tingling, fever, chills, chest pain, shortness of breath, nausea, vomiting, dizziness, headaches, slurred speech or other. Status: Acute Priority: Medium Procedures: Left TKA Patient Condition at Discharge: Good Plan - Discharge Summary Discharge Rx Participant: Yes New Discharge Prescriptions: New Aspirin [Adult Low Dose Aspirin EC] 81 mg PO BID #60 tablet. HYDROcodone/APAP 7.5-325MG [[place] 7.5-325] 1 - 2 each PO Q6HR PRN #42 tab PRN Reason: Pain No Action Pseudoephedrine [Sudafed] 1 - 2 tab PO Q6H PRN PRN Reason: COLD SX Magnesium Oxide [Mag-Ox] 200 mg PO DAILY Glucosam/Jason-Msm1/C/Adan/Bosw [Glucosamine-Chondroitin Tablet] 1 each PO DAILY Zinc 50 mg PO DAILY Calcium Carbonate/Vitamin D3 [Caltrate 600 Plus D3 Tablet] 1 each PO DAILY Vanquish 1 tab PO DIRECTED PRN PRN Reason: AL Heliocare 1 tab PO DAILY Acetaminophen [Tylenol Extra Strength] 500 - 1,000 mg PO DIRECTED PRN PRN Reason: Pain Cartilage/Collagen/Bor/Hyalur [Move Free Ultra Tablet] 1 each PO DAILY Krill Oil 500 mg PO DAILY Multivit-Min/Iron/Folic/Lutein [Centrum Silver Women Tablet] 1 each PO DAILY Omeprazole Magnesium [PriLOSEC OTC] 20 mg PO DAILY PRN PRN Reason: GERD Calcium Carbonate [Tums] 500 - 1,000 mg PO QID PRN PRN Reason: GERD Sulfamethox-Tmp 800-160Mg [Bactrim DS 800-160 mg] 1 tab PO Q12HR Discharge Medication List Calcium Carbonate/Vitamin D3 [Caltrate 600 Plus D3 Tablet] 1 each PO DAILY 05/16/16 [History] Glucosam/Jason-Msm1/C/Adan/Bosw [Glucosamine-Chondroitin Tablet] 1 each PO DAILY 05/16/16 [History] Heliocare 1 tab PO DAILY 05/16/16 [History] Magnesium Oxide [Mag-Ox] 200 mg PO DAILY 05/16/16 [History] Pseudoephedrine [Sudafed] 1 - 2 tab PO Q6H PRN 05/16/16 [History] Vanquish 1 tab PO DIRECTED PRN 05/16/16 [History] Zinc 50 mg PO DAILY 05/16/16 [History] Acetaminophen [Tylenol Extra Strength] 500 - 1,000 mg PO DIRECTED PRN 06/13/20 [History] Calcium Carbonate [Tums] 500 - 1,000 mg PO QID PRN 06/13/20 [History] Cartilage/Collagen/Bor/Hyalur [Move Free Ultra Tablet] 1 each PO DAILY 06/13/20 [History] Krill Oil 500 mg PO DAILY 06/13/20 [History] Multivit-Min/Iron/Folic/Lutein [Centrum Silver Women Tablet] 1 each PO DAILY 06/13/20 [History] Omeprazole Magnesium [PriLOSEC OTC] 20 mg PO DAILY PRN 06/13/20 [History] Sulfamethox-Tmp 800-160Mg [Bactrim DS 800-160 mg] 1 tab PO Q12HR 06/15/20 [History] Aspirin [Adult Low Dose Aspirin EC] 81 mg PO BID #60 tablet. 06/16/20 [Rx] HYDROcodone/APAP 7.5-325MG [[place] 7.5-325] 1 - 2 each PO Q6HR PRN #42 tab 06/16/20 [Rx] Follow up Appointment(s)/Referral(s): Thaddeus Rondon MD [Primary Care Provider] - 07/05/20 9:15 am [facility], [NON-STAFF] - As Needed Noble Braswell MD [STAFF PHYSICIAN] - 06/26/20 1:15 pm Patient Instructions/Handouts: Knee Replacement (DC) Activity/Diet/Wound Care/Special Instructions: Keep wound clean and dry Take meds as directed Follow-up with Dr. Braswell in office Weight bear as tolerated May shower in 3 days if no bleeding Discharge Disposition: HOME WITH HOME HEALTH SERVICES
== END 2020-06-16 15:47 | disposition home health service (06) ==
LOC: OR 07:53 → 4SSUR 11:08 → OR 06-16 15:47
PROVIDERS: ATTEND Orthopaedic Surgery Sports Medicine
DX: M17.12 Unilateral primary osteoarthritis, left knee (principal); M21.162 Varus deformity, not elsewhere classified, left knee; M25.762 Osteophyte, left knee; J30.9 Allergic rhinitis, unspecified; K21.9 Gastro-esophageal reflux disease without esophagitis; G43.909 Migraine, unspecified, not intractable, without status migrainosus; Z97.3 Presence of spectacles and contact lenses; Z85.828 Personal history of other malignant neoplasm of skin; Z90.710 Acquired absence of both cervix and uterus; Z79.899 Other long term (current) drug therapy; Z80.0 Family history of malignant neoplasm of digestive organs; Z82.49 Family history of ischemic heart disease and other diseases of the circulatory system
CPT/HCPCS: 97110; 97161; 64448; 76942; 85025; 88300; 73560; 27447; C1776; C1713; J2250; J0171; J1100; J0690 ×3; J2405; J2001; J3010; J1885; J2795 ×2; J2370; J2704; J0735

== ENCOUNTER → 2021-04-11 | Outpatient (CLI) | payer MEDICARE ==
--- NOTE | 2021-04-13 14:27 | MM ---
Reason for exam: screening (asymptomatic). Last mammogram was performed 1 year and 2 months ago. History: Patient is postmenopausal and has history of other cancer at age 53. Took hormonal contraceptives for 5 years beginning at age 19. Physical Findings: A clinical breast exam by your physician is recommended on an annual basis and results should be correlated with mammographic findings. MG 3D Screening Mammo W/Cad Bilateral CC and MLO view(s) were taken. Prior study comparison: February 18, 2020, bilateral MG 3d screening mammo w/cad. July 06, 2019, left breast MG 3d diag mammo w/cad LT. December 15, 2018, left breast US breast workup limited LT. October 21, 2017, bilateral MG 3d screening mammo w/cad. September 30, 2016, bilateral MG 3d screening mammo w/cad. There are scattered fibroglandular densities. Two new adjacent circumscribed nodules posterior medial left breast appear low density on MLO suggesting benign cysts. ASSESSMENT: Incomplete: need additional imaging evaluation, BI-RAD 0 RECOMMENDATION: Special view mammogram of the left breast. (3D) If lesion persists on supplemental views, image directed ultrasound is recommended. [facility] will attempt to contact patient to return for supplemental views and ultrasound if indicated.
== END | disposition home or self-care (01) ==
LOC: RADMAMWWP 11:44
PROVIDERS: ATTEND Obstetrics & Gynecology
DX: Z12.31 Encounter for screening mammogram for malignant neoplasm of breast (principal); Z78.0 Asymptomatic menopausal state; Z85.9 Personal history of malignant neoplasm, unspecified; Z79.3 Long term (current) use of hormonal contraceptives
CPT/HCPCS: 77063; 77067

== ENCOUNTER → 2021-05-03 | Outpatient (CLI) | payer MEDICARE ==
--- NOTE | 2021-05-04 10:59 | MM ---
Reason for exam: additional evaluation requested from abnormal screening. Last mammogram was performed 1 month ago. History: Patient is postmenopausal and has history of other cancer at age 53. Took hormonal contraceptives for 5 years beginning at age 19. Physical Findings: Nurse did not find any significant physical abnormalities on exam. MG 3D Work Up W/Cad LT Spot compression CC, spot compression MLO, and LM view(s) were taken of the left breast. Prior study comparison: April 11, 2021, bilateral MG 3d screening mammo w/cad. February 18, 2020, bilateral MG 3d screening mammo w/cad. July 06, 2019, left breast MG 3d diag mammo w/cad LT. The breast tissue is heterogeneously dense. This may lower the sensitivity of mammography. Two adjacent 4-5mm nodules persist. These appear circumscribed and area located at approximately 10 o'clock. These results were verbally communicated with the patient and result sheet given to the patient on 05/03/21. ASSESSMENT: Incomplete: need additional imaging evaluation, BI-RAD 0 RECOMMENDATION: Ultrasound of the left breast.
--- NOTE | 2021-05-04 11:04 | USB ---
Reason for exam: additional evaluation requested from abnormal screening. History: Patient is postmenopausal and has history of other cancer at age 53. Took hormonal contraceptives for 5 years beginning at age 19. US Breast Workup Limited LT Left limited breast ultrasound including focal area of concern, retroareolar and axilla demonstrates a 0.4 x 0.3 x 0.3cm hypoechoic lesion at 10 o'clock and a 0.3 x 0.3 x 0.4cm hypoechoic lesion at 10 o'clock. Immediately and adjacent to each other. Circumscribed with thru transmission. Possible cysts with debris or artifact. 6 month follow up. These results were verbally communicated with the patient and result sheet given to the patient on 05/03/21. ASSESSMENT: Probably benign, BI-RAD 3 RECOMMENDATION: Follow-up diagnostic mammogram of the left breast in 6 months.
== END | disposition home or self-care (01) ==
LOC: RADMAMWWP 13:41
PROVIDERS: ATTEND Obstetrics & Gynecology
DX: N64.89 Other specified disorders of breast (principal); N63.22 Unspecified lump in the left breast, upper inner quadrant; Z78.0 Asymptomatic menopausal state
CPT/HCPCS: 77065; 76642; G0279; 77061

== ENCOUNTER → 2021-06-25 | Outpatient (CLI) | payer MEDICARE ==
--- NOTE | 2021-06-25 14:25 | CT ---
EXAMINATION TYPE: CT sinus wo con DATE OF EXAM: 06/25/2021 COMPARISON: NONE HISTORY: allergic rhinitis CT DLP: 563 mGycm. Automated Exposure Control for Dose Reduction was Utilized. TECHNIQUE: CT scan of the sinuses is performed without contrast, axial images are obtained, coronal r eformatted images are also reviewed. FINDINGS: There is 10 mm mucus retention cyst or polyp in the lateral left maxillary sinus. Mild muco joe thickening in the posterior left ethmoid sinus. No suspicious opacification or air-fluid levels i n the paranasal sinuses. The surgically treated ostiomeatal complex remains patent bilaterally on the coronal images. Visualized portion of mastoid air cells show no abnormal opacification. The globes are intact bilate rally. Visualized portion of brain parenchyma is unremarkable. IMPRESSION: Evidence of prior paranasal sinus surgery. No recurrent acute sinusitis.
== END | disposition home or self-care (01) ==
LOC: RADCTMAIN 14:03
PROVIDERS: ATTEND Internal Medicine
DX: J30.9 Allergic rhinitis, unspecified (principal)
CPT/HCPCS: 70486

== ENCOUNTER → 2021-10-11 | Outpatient (CLI) | payer MEDICARE ==
--- NOTE | 2021-10-11 09:43 | MM ---
Reason for exam: follow-up at short interval from prior study. Last mammogram was performed 5 months ago. History: Patient is postmenopausal and has history of other cancer at age 53. Took hormonal contraceptives for 5 years beginning at age 19. Physical Findings: A clinical breast exam by your physician is recommended on an annual basis and results should be correlated with mammographic findings. MG 3D Diag Mammo W/Cad LT CC and MLO view(s) were taken of the left breast. Prior study comparison: May 03, 2021, left breast MG 3d work up w/cad LT. April 11, 2021, bilateral MG 3d screening mammo w/cad. The breast tissue is heterogeneously dense. This may lower the sensitivity of mammography. Benign calcifications. There is chronic nodularity in the left breast. These results were verbally communicated with the patient and result sheet given to the patient on 10/11/21. ASSESSMENT: Benign, BI-RAD 2 RECOMMENDATION: Return to routine screening mammogram schedule for both breasts. Back on schedule.
== END | disposition home or self-care (01) ==
LOC: RADMAMWWP 08:33
PROVIDERS: ATTEND Obstetrics & Gynecology
DX: R92.8 Other abnormal and inconclusive findings on diagnostic imaging of breast (principal); Z78.0 Asymptomatic menopausal state
CPT/HCPCS: 77065; G0279; 77061

== ENCOUNTER → 2021-11-06 | Day surgery (SDC) | payer MEDICARE ==
[2021-11-02 13:18] VITALS: BMI 28.3
[~2021-11-06] MED LIST changes: -ACETAMINOPHEN TAB 500 MG TAB PO ONE; -DEXAMETHASONE SOD PHOSPHATE 4 MG/ML 1 ML VIAL IV ONE; -GABAPENTIN 300 MG CAP PO ONE; -HYDROmorphone 0.5 MG/0.5 ML SYRINGE IVP PRN; +LACTATED RINGERS 1,000 ML IV ONE; -LACTATED RINGERS 1,000 ML IV SCH; +LIDOCAINE 1% (10MG/ML) FOR IV START INTRADERMA ONE; +LIDOCAINE 1% INJ 10MG/ML (20 ML MDV) ONE; -MELOXICAM 7.5 MG TAB PO ONE; -MIDAZOLAM 2 MG/2 ML VIAL IV PRN; -ONDANSETRON 4 MG/2 ML VIAL IVP ONE; +PROPOFOL 10 MG/ML 20 ML VIAL IV ONE; -TRANEXAMIC ACID 1,000 MG in SODIUM CHLORIDE 0.9% 100 ML IVPB ONE
[2021-11-06 06:45] VITALS: TEMP 96.4
--- NOTE | 2021-11-06 07:55 | P.PCN ---
Date of Procedure: 11/06/21 Procedure(s) Performed: Brief history: Patient is a pleasant 66-year-old white female scheduled for an elective upper endoscopy as well as colonoscopy as a part of evaluation of GERD and history of colon polyps Procedure performed: Esophagogastroduodenoscopy with biopsy Colonoscopy Preoperative diagnosis: GERD History of colon polyps Anesthesia: MAC Procedure: After informed consent was obtained from the patient was brought into the endoscopy unit and IV sedation was administered by anesthesia under continuous monitoring. Initially upper endoscopy was done. The Olympus GF 160 video endoscope was inserted inserted into the mouth and esophagus intubated without any difficulty and was gradually advanced into the stomach and duodenum and carefully examined. The bulb and second part of the duodenum appeared normal. The scope was then withdrawn into the stomach adequately insufflated with air and upon careful examination the antrum had mild gastritis and biopsies were done from this area. The elie, cardia and fundus appeared normal. The scope was then withdrawn into the esophagus. The GE junction was located at 40 cm to the incisors. It appeared regular with no erythema erosions or ulcerations. Rest of the esophagus appeared normal. Patient tolerated the procedure well. At this time the patient continued to remain sedation. Initial digital rectal examination was normal. Olympus CF 160 video colonoscope was then inserted into the rectum and gradually advanced to the cecum without any difficulty. Careful examination was performed as the scope was gradually being withdrawn. The prep was excellent. The cecum, ascending colon, transverse colon, descending colon, sigmoid colon and rectum appeared normal. Scattered sigmoid diverticulosis seen. Retroflexion was performed in the rectum and no lesions were noted. Patient tolerated the procedure well. Impression: 1. Upper endoscopy revealed mild antral gastritis and small hiatal hernia. 2. Colonoscopy revealed scattered sigmoid diverticula seen but no evidence of colorectal neoplasia Recommendations: Findings of this examination were discussed with the patient as well as her family. She was advised to continue with omeprazole 20 mg daily and follow antireflux measures. She can have a repeat colonoscopy in 5 years from now because of the prior history of colon polyps.
[2021-11-06 07:59] VITALS: RESP 16
[2021-11-06 08:21] VITALS: BP 118/79; PULSE 87
== END ==
LOC: ORWHC2ENDO 06:17
PROVIDERS: ATTEND Internal Medicine Gastroenterology
DX: K29.50 Unspecified chronic gastritis without bleeding (principal); K21.9 Gastro-esophageal reflux disease without esophagitis; Z12.11 Encounter for screening for malignant neoplasm of colon; K57.30 Diverticulosis of large intestine without perforation or abscess without bleeding; Z86.010 Personal history of colon polyps; Z79.899 Other long term (current) drug therapy
CPT/HCPCS: 88305; 43239; J2001; J2704; G0121

== ENCOUNTER 2022-04-28 19:58 | Emergency (ER) | payer MEDICARE ==
[2022-04-28 20:02] VITALS: TEMP 97.4
[2022-04-28] MEDS ORDERED: ONDANSETRON 4 MG/2 ML VIAL IVP STA (20:12)
[2022-04-28] MEDS ORDERED: MORPHINE SULFATE 4 MG/ML SYRINGE IVP STA (20:12)
--- NOTE | 2022-04-28 20:18 | ED ---
Upper Extremity HPI - General Source: patient, family, RN notes reviewed, old records reviewed Limitations: no limitations - History of Present Illness MD Complaint: Injury to:: left, shoulder -: hour(s) (1) Other Injuries: none Severity scale (1-10): 8 Improves With: immobilization Worsens With: movement of extremity Context: fall Associated Symptoms: denies other symptoms <Kavon Henley - Last Filed: 04/28/22 21:07> <Ariel Clay - Last Filed: 04/28/22 22:08> - General Chief Complaint: Extremity Injury, Upper Stated Complaint: Fall-L shoulder injury Time Seen by Provider: 04/28/22 20:06 - History of Present Illness Initial Comments: 66-year-old female presents to the emergency room after trip and fall landing on her left elbow, complaining of left shoulder pain. Patient states that she has difficulty moving the arm and is more comfortable with adduction. Denies any other injuries. Did not hit her head or lose consciousness. (Kavon Henley) - Related Data Home Medications Medication Instructions Recorded Confirmed Calcium Carbonate/Vitamin D3 1 each PO DAILY 05/16/16 11/06/21 [Caltrate 600 Plus D3 Tablet] Glucosam/Jason-Msm1/C/Adan/Bosw 1 each PO DAILY 05/16/16 11/06/21 [Glucosamine-Chondroitin Tablet] Magnesium Oxide [Mag-Ox] 200 mg PO DAILY 05/16/16 11/06/21 Zinc 50 mg PO DAILY 05/16/16 11/06/21 Acetaminophen [Tylenol Extra 500 - 1,000 mg PO DIRECTED PRN 06/13/20 11/06/21 Strength] Calcium Carbonate [Tums] 500 - 1,000 mg PO QID PRN 06/13/20 11/06/21 Cartilage/Collagen/Bor/Hyalur 1 each PO DAILY 06/13/20 11/06/21 [Move Free Ultra Tablet] Krill Oil 500 mg PO DAILY 06/13/20 11/06/21 Multivit-Min/Iron/Folic/Lutein 1 each PO DAILY 06/13/20 11/06/21 [Centrum Silver Women Tablet] Omeprazole Magnesium [PriLOSEC OTC] 20 mg PO DAILY 06/13/20 11/06/21 Allergies Allergy/AdvReac Type Severity Reaction Status Date / Time No Known Allergies Allergy Verified 04/28/22 20:02 Review of Systems ROS Other: All systems not noted in ROS Statement are negative. <Kavon Henley - Last Filed: 04/28/22 21:07> ROS Other: All systems not noted in ROS Statement are negative. <Ariel Clay - Last Filed: 04/28/22 22:08> ROS Statement: Those systems with pertinent positive or pertinent negative responses have been documented in the HPI. Past Medical History Past Medical History: Cancer, GERD/Reflux Additional Past Medical History / Comment(s): SKIN CA. RECENT COLD, SUBSIDING. RECENT RX FOR UTI. SMALL HIATAL HERNIA. History of Any Multi-Drug Resistant Organisms: None Reported Past Surgical History: Bladder Surgery, Hysterectomy Additional Past Surgical History / Comment(s): CYSTOCELE, RECTOCELE REPAIR. SINUS SURG. EGD; COLONOSCOPY. Past Anesthesia/Blood Transfusion Reactions: Postoperative Nausea & Vomiting (PONV) Additional Past Anesthesia/Blood Transfusion Reaction / Comment(s): SEVERE PONV W/ GENERAL ANESTHESIA, EVEN W/ PRE-OP RX. Past Psychological History: No Psychological Hx Reported Smoking Status: Never smoker Past Alcohol Use History: Rare Past Drug Use History: None Reported - Past Family History Father Family Medical History: Cancer Sister(s) Family Medical History: No Reported History <Kavon Henley - Last Filed: 04/28/22 21:07> General Exam Limitations: no limitations General appearance: alert, in no apparent distress Head exam: Present: atraumatic Eye exam: Present: normal appearance Neck exam: Absent: tenderness, meningismus Respiratory exam: Absent: respiratory distress, accessory muscle use Cardiovascular Exam: Present: regular rate Left Shoulder Exam: Present: tenderness, deformity Upper Arm exam: Absent: full ROM, tenderness Elbow exam: Absent: tenderness, dislocation, tenderness over radial head Forearm Wrist exam: Present: full ROM. Absent: tenderness, swelling, abrasion, laceration, ecchymosis, deformity, erythema Vascular: Present: normal capillary refill, radial pulse. Absent: vascular compromise Neurological exam: Present: alert, oriented X3 Psychiatric exam: Present: normal affect, normal mood Skin exam: Present: warm, dry, normal color. Absent: cyanosis, diaphoretic, petechiae, pallor <Kavon Henley Last Filed: 04/28/22 21:07> Course Vital Signs 04/28/22 04/28/22 04/28/22 19:59 21:13 21:20 Temperature 97.4 F L Pulse Rate 61 65 65 Respiratory 18 16 16 Rate Blood Pressure 111/69 104/65 104/46 O2 Sat by Pulse 97 100 99 Oximetry 04/28/22 04/28/22 04/28/22 21:25 21:30 21:35 Temperature Pulse Rate 69 75 65 Respiratory 20 16 16 Rate Blood Pressure 124/73 110/70 105/63 O2 Sat by Pulse 100 100 100 Oximetry 04/28/22 21:45 Temperature Pulse Rate 62 Respiratory 20 Rate Blood Pressure 105/63 O2 Sat by Pulse 99 Oximetry Procedures - Orthopedic Joint Reduction Joint #1 Consent Obtained: verbal consent, written consent Side: left Joint Reduction Location: shoulder Analgesia: procedural sedation Shoulder Technique Used (if applicable): traction/counter-traction Post-Reduction Neuro Exam: intact Post-Reduction Vascular Exam: intact Post Reduction X-Ray Obtained: Yes Post Reduction X-Ray Results: reduced Splint Applied: Yes Patient Tolerated Procedure: well - Procedural Sedation Procedural Sedation Start Time: 21:10 Procedural Sedation Stop Time: 21:15 Indications: fracture/dislocation reduction ASA Class: II Mallampati Airway Score: 1 Preparation: monitoring coordinator applied, pulse oximeter, capnometry used, supplemental O2 applied IV Propofol Dose (mgs): 70 Complications: none Patient Tolerated Procedure: well <Ariel Clay - Last Filed: 04/28/22 22:08> Medical Decision Making <Ariel Clay - Last Filed: 04/28/22 22:08> - Medical Decision Making Procedure sedation performed with reduction of left shoulder. Patient tolerated procedure well. Please see sedation and reduction note. Patient monitored in the [facility] department for several minutes after procedure. Post procedure x-ray is unremarkable. Patient monitored and reevaluated found to be stable medical condition. Patient be discharged with referral to orthopedic surgery. (Ariel Clay) Disposition <Kavon Henley - Last Filed: 04/28/22 21:07> Is patient prescribed a controlled substance at d/c from ED?: No <Ariel Clay - Last Filed: 04/28/22 22:08> Clinical Impression: Shoulder dislocation Disposition: HOME SELF-CARE Instructions (If sedation given, give patient instructions): Shoulder Dislocation (ED), Moderate Sedation (ED) Referrals: Noble Braswell MD [STAFF PHYSICIAN] - 1-2 days
[2022-04-28] MEDS ORDERED: KETOROLAC 15 MG/ML 1 ML VIAL IM STA (20:37)
--- NOTE | 2022-04-28 20:46 | XR ---
EXAMINATION TYPE: XR shoulder limited LT DATE OF EXAM: 04/28/2022 COMPARISON: NONE HISTORY: Fall. Pain TECHNIQUE: 2 views FINDINGS: There is anterior dislocation of the glenohumeral joint. No fracture seen. IMPRESSION: Anterior left shoulder dislocation.
--- NOTE | 2022-04-28 20:47 | XR ---
EXAMINATION TYPE: XR humerus LT DATE OF EXAM: 04/28/2022 COMPARISON: NONE HISTORY: Pain TECHNIQUE: 3 views FINDINGS: The humerus is intact. No fracture seen. Elbow joint is not seen to best advantage. No obvi ous fracture. There is anterior dislocation of the humeral head. Scapula is intact. IMPRESSION: Anterior shoulder joint dislocation.
[2022-04-28] MEDS ORDERED: PROPOFOL 10 MG/ML 20 ML VIAL IV ONE (21:16)
--- NOTE | 2022-04-28 21:19 | XR ---
EXAMINATION TYPE: XR shoulder limited LT DATE OF EXAM: 04/28/2022 COMPARISON: Today HISTORY: Post reduction TECHNIQUE: Single view FINDINGS: There is persistent anterior dislocation of the glenohumeral joint. No fracture seen. IMPRESSION: Anterior dislocation.
--- NOTE | 2022-04-28 21:52 | XR ---
EXAMINATION TYPE: XR shoulder limited LT DATE OF EXAM: 04/28/2022 COMPARISON: Today's HISTORY: Post reduction TECHNIQUE: Single view FINDINGS: There is apparent anatomic reduction of the glenohumeral joint. No fracture seen. IMPRESSION: Anatomic reduction.
--- NOTE | 2022-04-28 22:10 | XR ---
EXAMINATION TYPE: XR shoulder complete LT DATE OF EXAM: 04/28/2022 COMPARISON: NONE HISTORY: Post reduction TECHNIQUE: 3 views FINDINGS: There is anatomic position of the glenohumeral joint. There is mild spurring at the AC join t. Scapula is intact. No fracture seen. IMPRESSION: Negative left shoulder exam. No fracture. There is some minimal atelectasis left lung bas e.
[2022-04-28 22:50] VITALS: BP 110/60; PULSE 65; RESP 16
== END 2022-04-28 22:50 | disposition home or self-care (01) ==
LOC: EC 19:58
DX: S43.005A Unspecified dislocation of left shoulder joint, initial encounter (principal); K21.9 Gastro-esophageal reflux disease without esophagitis; Z79.83 Long term (current) use of bisphosphonates; W01.0XXA Fall on same level from slipping, tripping and stumbling without subsequent striking against object, initial encounter
CPT/HCPCS: 23650; 99284; 96374; 96375; 73030; 73020; 73060; J2270; J2405; J1885; J2704

== ENCOUNTER → 2022-05-22 | Outpatient (CLI) | payer MEDICARE ==
--- NOTE | 2022-05-22 14:09 | BD ---
EXAMINATION TYPE: Axial Bone Density DATE OF EXAM: 05/22/2022 COMPARISON: NONE CLINICAL HISTORY: 66 years year old Female. ICD-10 CODE: N95.1 Post menopausal symptoms Height: 5 FT 1/2 IN Weight: 152 FRAX RISK QUESTIONS: Alcohol (3 or more units per day): NO Family History (Parent hip fracture): NO Glucocorticoids (More than 3mos): NO (Ex: prednisone, prednisolone, methylprednisolone, dexamethasone, and hydrocortisone). History of Fracture in Adulthood: NO Secondary Osteoporosis: 1. Type 1 Diabetes: NO 2. Hyperthyroidism: NO 3. Menopause before 45: NO 4. Malnutrition: NO 5. Chronic liver disease: NO Rheumatoid Arthritis: NO Current Tobacco Use: NO RISK FACTORS HISTORY OF: Surgery to Spine/Hip(right/left)/Wrist (right/left): NO Family History of Osteoporosis: NO Active: YES Diet low in dairy products/other sources of calcium: NO Postmenopausal woman: YES Take estrogen and/or progesterone medications: NO Lost more than 2 inches in height since high school: NO Frequent falls: NO Poor Health: GOOD Hyperparathyroidism: NO Adrenal Insufficiency: NO MEDICATIONS: Additional Medications: Additional History: EXAM MEASUREMENTS: Bone mineral densitometry was performed using the [employer] System. Bone mineral density as measured about the Lumbar spine is: ----- L1-L4(G/cm2): 1.153 T Score Values are as follows: ----- L1: -1.2 ----- L2: -0.9 ----- L3: 0.0 ----- L4: 0.7 ----- L1-L4: -0.2 Bone mineral density has: DECREASED -1.1 % since study of: 2017 Bone mineral density about the R hip (g/cm2): 0.887 Bone mineral density about the L hip (g/cm2): 0.815 T Score values are as follows: -----R Neck: -1.1 -----L Neck: -1.6 -----R Total: -0.9 -----L Total: -1.6 Bone mineral density has: DECREASED -10.3 % since study of: 2017 FRAX%s: The graph provided illustrates a 9.6 % chance for a major osteoporotic fx and a 1.3 % chance for the hips probability for fx in 10 years time. IMPRESSION: Osteopenia (T Score between -2.5 and -1). There is slightly increased risk of fracture and the patient may be considered for treatment. Re-Screen 2-5 years. NOTE: T-SCORE=SD OF THE YOUNG ADULT MEAN.
== END | disposition home or self-care (01) ==
LOC: RADBDWWP 12:39
PROVIDERS: ATTEND Obstetrics & Gynecology
DX: M85.89 Other specified disorders of bone density and structure, multiple sites (principal)
CPT/HCPCS: 77080

== ENCOUNTER → 2023-07-03 | Outpatient (CLI) | payer MEDICARE ==
--- NOTE | 2023-07-03 13:09 | US ---
EXAMINATION TYPE: US pelvic complete DATE OF EXAM: 07/03/2023 COMPARISON: NONE CLINICAL INDICATION: Female, 67 years old with history of R10.2 PELVIC AND PERINEAL PAIN; intermitten t pelvic pain x 1 month, mostly left sided, partial hysterectomy 18 yrs ago TECHNIQUE: Transabdominal (TA). Transabdominal sonographic images of the pelvis were acquired. Pat ient declined TV at this time Date of LMP: 18 years ago EXAM MEASUREMENTS: Uterus: Surgically absent Endometrial Stripe: Surgically absent Right Ovary: obscured by bowel Left Ovary: 1.7x0.9x1.7 cm 1. Uterus: Surgically absent 2. Endometrium: Surgically absent 3. Right Ovary: Obscured by overlying bowel gas 4. Left Ovary: wnl 5. Bilateral Adnexa: Obscured by overlying bowel gas 6. Posterior cul-de-sac: wnl right bladder diverticula noted, exam limited by bowel gas IMPRESSION: 1. Limited evaluation as only the left ovary was visualized which appears unremarkable. 2. No abnormal pelvic mass or fluid collection otherwise seen.
== END | disposition home or self-care (01) ==
LOC: RADUSWWP 12:15
PROVIDERS: ATTEND Obstetrics & Gynecology
DX: R10.2 Pelvic and perineal pain (principal)
CPT/HCPCS: 76856

== ENCOUNTER → 2023-10-01 | Outpatient (CLI) | payer MEDICARE ==
--- NOTE | 2023-10-01 21:10 | MM ---
Reason for Exam: Screening (asymptomatic). Last screening mammogram was performed 12 month(s) ago. Patient History: Menarche at age 10. First Full-Term at age 25. Hysterectomy at age 46. Postmenopausal. Patient has history of breast feeding. Other cancer, age 53. Hormonal Contraceptives for 5 years from age 19 until age 24. Risk Values: Ruth 5 year model risk: 2.1%. NCI Lifetime model risk: 6.4%. Prior Study Comparison: 05/03/2021 Left Diagnostic Mammogram, [facility]. 10/11/2021 Left Diagnostic Mammogram, [facility]. 09/26/2022 Bilateral MG 3D screening mammo w/cad, [facility]. Tissue Density: The breast tissue is heterogeneously dense. This may lower the sensitivity of mammography. Findings: Analyzed By CAD. The pattern is symmetrical. No significant interval change is evident. Benign small round calcifications are present bilaterally. No suspicious groups of microcalcifications, spiculated or lobular masses, architectural distortion or other secondary signs of malignancy are mammographically apparent. Overall Assessment: Benign, BI-RAD 2 Management: Screening Mammogram of both breasts in 1 year. A negative mammogram report should not preclude additional follow up of suspicious palpable abnormalities. Patient should continue monthly self breast exam. A clinical breast exam by your physician is recommended on an annual basis and results should be correlated with mammographic findings. Electronically signed and approved by: Dustin Castano D.O. Radiologis
== END | disposition home or self-care (01) ==
LOC: RADMAMWWP 10:04
PROVIDERS: ATTEND Obstetrics & Gynecology
DX: Z12.31 Encounter for screening mammogram for malignant neoplasm of breast (principal); Z78.0 Asymptomatic menopausal state
CPT/HCPCS: 77063; 77067

== ENCOUNTER → 2024-06-01 | Outpatient (CLI) | payer MEDICARE ==
--- NOTE | 2024-06-01 17:38 | BD ---
EXAMINATION TYPE: Axial Bone Density DATE OF EXAM: 06/01/2024 CLINICAL HISTORY: 68 years old Female. ICD-10 CODE: Z78.0 ASYMPTMATIC MENOPAUSAL STATE , Z78.0 Height: 62" Weight: 153.8lbs FRAX RISK QUESTIONS: Alcohol (3 or more units per day): No Family History (Parent hip fracture): No Glucocorticoids (More than 3mos): No (Ex: prednisone, prednisolone, methylprednisolone, dexamethasone, and hydrocortisone). History of Fracture in Adulthood: No Secondary Osteoporosis: 1. Type 1 Diabetes: No 2. Hyperthyroidism: No 3. Menopause before 45: No 4. Malnutrition: No 5. Chronic liver disease: No Rheumatoid Arthritis: No Current Tobacco Use: No RISK FACTORS HISTORY OF: Hip Fracture (Right/Left): No Spine Fracture: No History of Wrist Fracture: No Surgery to Spine/Hip(right/left)/Wrist (right/left): No MEDICATIONS: Thyroid Medications: No Osteoporosis Medications: No EXAM MEASUREMENTS: Bone mineral densitometry was performed using the [employer] System. Bone mineral density as measured about the Lumbar spine is: ----- L1-L4(G/cm2): 1.134 T Score Values are as follows: ----- L1: -1.4 ----- L2: -1.0 ----- L3: -0.3 ----- L4: 0.8 ----- L1-L4: -0.4 Z Score Values are as follows: ----- L1: 0.1 ----- L2: 0.5 ----- L3: 1.2 ----- L4: 2.3 ----- L1-L4: 1.1 Bone mineral density has: decreased -1.6% since study of: 05/22/2022 Bone mineral density about the R hip (g/cm2): 0.870 Bone mineral density about the L hip (g/cm2): 0.968 T Score values are as follows: -----R Neck: -1.2 -----L Neck: -0.4 -----R Total: -1.1 -----L Total: -0.3 Z Score values are as follows: -----R Neck: 0.4 -----L Neck: 1.2 -----R Total: 0.2 -----L Total: 1.0 Bone mineral density has: increased 8.0% since study of: 05/22/2022 FRAX%s: The graph provided illustrates a 9.0% chance for a major osteoporotic fx and a 1.0% chance fo r the hips probability for fx in 10 years time. IMPRESSION: Osteopenia (T Score between -2.5 and -1). There is slightly increased risk of fracture and the patient may be considered for treatment. Re-Screen 2-5 years. NOTE: T-SCORE=SD OF THE YOUNG ADULT MEAN. [facility], , 06/01/2024 5:36 PM
== END | disposition home or self-care (01) ==
LOC: RADBDWWP 08:42
PROVIDERS: ATTEND Family Medicine
CPT/HCPCS: 77080

== ENCOUNTER → 2024-10-19 | Outpatient (CLI) | payer MEDICARE ==
--- NOTE | 2024-10-19 13:17 | MM ---
Reason for Exam: Screening (asymptomatic). Last mammogram was performed 1 year(s) and 1 month(s) ago. Patient History: Menarche at age 10. First Full-Term at age 25. Hysterectomy at age 46. Postmenopausal. Patient has history of breast feeding. Other cancer, age 53. Hormonal Contraceptives for 5 years from age 19 until age 24. Risk Values: Ruth 5 year model risk: 2.1%. NCI Lifetime model risk: 6.1%. Prior Study Comparison: 10/11/2021 Left Diagnostic Mammogram, [facility]. 09/26/2022 Bilateral MG 3D screening mammo w/cad, [facility]. 10/01/2023 Bilateral MG 3D screening mammo w/cad, [facility]. Tissue Density: The breasts are heterogeneously dense, which may obscure small masses. Findings: Analyzed By CAD. There is no suspicious group of microcalcifications or new suspicious mass in either breast. Overall Assessment: Negative, BI-RAD 1 Management: Screening Mammogram of both breasts in 1 year. Some advise bilateral breast US surveillance in patient's with dense tissue. Patient should continue monthly self-breast exams. A clinical breast exam by your physician is recommended on an annual basis. This exam should not preclude additional follow-up of suspicious palpable abnormalities. Note on Ruth scores and lifetime risk: 1. A Ruth score greater than 3% is considered moderate risk. If this is the case, consider specialist referral to assess eligibility for a risk reducing agent. 2. If overall lifetime risk for the development of breast cancer is 20% or higher, the patient may qualify for future screening with alternating mammogram and breast MRI. [facility], , 10/19/2024 1:00 PM. Electronically signed and approved by: Danial Campos M.D.
== END | disposition home or self-care (01) ==
LOC: RADMAMWWP 12:38
PROVIDERS: ATTEND Internal Medicine Geriatric Medicine
DX: Z12.31 Encounter for screening mammogram for malignant neoplasm of breast (principal); R92.333 Mammographic heterogeneous density, bilateral breasts; Z78.0 Asymptomatic menopausal state; Z92.0 Personal history of contraception
CPT/HCPCS: 77063; 77067